=== PATIENT | female | born 1955 | race Caucasian/White ===

== ENCOUNTER → 2017-02-26 | Outpatient (CLI) | payer BC ==
[~2017-02-26] VITALS: Ht 162.6 cm; Wt 61.7 kg
[~2017-02-26] MED LIST: ADVAIR 250/501 DISK IH; ASPIR 8181 M1 PO; ATORVASTATIN CA20 MG PO; COQ-10100 MG PO; PROAIR HFA8.5 GM IH; SINGULAIR10 MG PO
[2017-02-26 10:06] LABS: HEMATOCRIT 44.9 % (36.0-46.0); MCH 28.4 PG (29.0-34.0); MCHC 31.4 G/DL (30.0-36.0); MCV 90.3 FL (83-99); MEAN PLAT.VOLUME 9.5 uM^3 (9.5-12.4); PLATELET COUNT 288 K/uL (156-360); RBC DIS.WIDTH-CV 13.5 % (11.8-14.6); RBC DIS.WIDTH-SD 45.3 % (39-53); RED BLOOD COUNT 4.97 M/uL (3.80-5.20); WHITE BLOOD COUNT 9.6 K/uL (4.1-10.2)
== END | disposition home or self-care (01) ==
LOC: OPR 09:21 → EDSTATUS 10:00 → OPR 10:00
PROVIDERS: Internal Medicine Pulmonary Disease
PROC: 0BBJ3ZX Excision of Left Lower Lung Lobe, Percutaneous Approach, Diagnostic (ICD-10-PCS; principal; 2017-02-26)
DX: C34.92 Malignant neoplasm of unspecified part of left bronchus or lung (principal); J44.9 Chronic obstructive pulmonary disease, unspecified; Z87.891 Personal history of nicotine dependence; E78.5 Hyperlipidemia, unspecified; Z79.82 Long term (current) use of aspirin; G43.909 Migraine, unspecified, not intractable, without status migrainosus; Z90.710 Acquired absence of both cervix and uterus
CPT/HCPCS: 71010; 77012; 85027; 88305; 88341 TC; 88342 TC; J3010

== ENCOUNTER → 2017-03-20 | Outpatient (CLI) | payer BC ==
[~2017-03-20] VITALS: Ht 162.6 cm; Wt 61.7 kg
[~2017-03-20] MED LIST changes: +ZANTAC150 MG PO
== END | disposition home or self-care (01) ==
LOC: AMB 10:05
DX: R59.1 Generalized enlarged lymph nodes (principal); C34.90 Malignant neoplasm of unspecified part of unspecified bronchus or lung; N28.1 Cyst of kidney, acquired; Z87.891 Personal history of nicotine dependence; Z79.82 Long term (current) use of aspirin; J44.9 Chronic obstructive pulmonary disease, unspecified; E78.2 Mixed hyperlipidemia; G43.909 Migraine, unspecified, not intractable, without status migrainosus; Z82.49 Family history of ischemic heart disease and other diseases of the circulatory system; Z80.3 Family history of malignant neoplasm of breast; Z88.5 Allergy status to narcotic agent
CPT/HCPCS: 88305; 88341 TC; 88342 TC; J0330; J0744; J1100; J2405; J3010

== ENCOUNTER → 2017-04-04 | Outpatient (CLI) | payer BC | END | disposition home or self-care (01) | LOC: CDC 10:29 | DX: Z01.810 Encounter for preprocedural cardiovascular examination (principal); C34.90 Malignant neoplasm of unspecified part of unspecified bronchus or lung; R94.31 Abnormal electrocardiogram [ECG] [EKG] | CPT/HCPCS: 93000 ==

== ENCOUNTER 2017-05-01 22:18 | Inpatient (IN) | payer BC ==
[~2017-05-01] VITALS: Ht 162.6 cm; Wt 69.9 kg
[~2017-05-01 22:18] MED LIST changes: +COLACE100 MG PO; +HYDROCODON-ACE1 EAC7 PO; +LORCET 5-325 M1 EACH PO; +NEXIUM20 MG PO
[2017-05-02] VITALS (12 sets, daily range): BP systolic 87–133; BP diastolic 55–75
[2017-05-02 07:33] LABS: PROTHROMBIN TIME 11.4 SEC (10.2-12.9)
[2017-05-02 16:02] LABS: METH RESISTANT S AUREUS PCR NEGATIVE (NEGATIVE)
[2017-05-02 16:03] LABS: PROBE CHECK PASS; SPECIMEN PROCESSING CONTROL PASS
[2017-05-03] VITALS (22 sets, daily range): BP systolic 83–116; BP diastolic 41–78
[2017-05-03 06:55] LABS: HEMATOCRIT 36.8 % (36.0-46.0); MCH 28.2 PG (29.0-34.0); MCHC 31.3 G/DL (30.0-36.0); MCV 90.2 FL (83-99); MEAN PLAT.VOLUME 9.3 uM^3 (9.5-12.4); PLATELET COUNT 284 K/uL (156-360); RED BLOOD COUNT 4.08 M/uL (3.80-5.20); WHITE BLOOD COUNT 14.2 K/uL (4.1-10.2)
[2017-05-03 07:15] LABS: ANION GAP 6 MEQ/L (2-14); CHLORIDE 104 MEQ/L (99-109); GFR ESTIMATE (CALCULATED) > 59 mL/min/; GLUCOSE 118 mg/dL (70-99); POTASSIUM 4.9 MEQ/L (3.7-5.4); SAMPLE HEMOLYSIS CHECK 0; SAMPLE ICTERIC CHECK 0; SAMPLE LIPEMIA CHECK 0; SODIUM 137 MEQ/L (136-147); UREA NITROGEN (BUN) 12 mg/dL (9-23)
[2017-05-04] VITALS (11 sets, daily range): BP systolic 89–118; BP diastolic 52–72
[2017-05-04 05:41] LABS: HEMATOCRIT 36.5 % (36.0-46.0); MCHC 31.2 G/DL (30.0-36.0); MCV 92.9 FL (83-99); MEAN PLAT.VOLUME 9.8 uM^3 (9.5-12.4); PLATELET COUNT 266 K/uL (156-360); RBC DIS.WIDTH-CV 13.2 % (11.8-14.6); RBC DIS.WIDTH-SD 45.5 % (39-53); RED BLOOD COUNT 3.93 M/uL (3.80-5.20)
[2017-05-04 06:00] LABS: ANION GAP 3 MEQ/L (2-14); CHLORIDE 105 MEQ/L (99-109); GFR ESTIMATE (CALCULATED) > 59 mL/min/; GLUCOSE 105 mg/dL (70-99); POTASSIUM 4.5 MEQ/L (3.7-5.4); SAMPLE HEMOLYSIS CHECK 0; SAMPLE ICTERIC CHECK 0; SAMPLE LIPEMIA CHECK 0; SODIUM 138 MEQ/L (136-147); UREA NITROGEN (BUN) 15 mg/dL (9-23)
[2017-05-05] VITALS (8 sets, daily range): BP systolic 88–125; BP diastolic 51–79
[2017-05-06 03:52] VITALS: BP 114/71
[2017-05-06 05:50] LABS: HEMATOCRIT 30.9 % (36.0-46.0); MCH 29.7 PG (29.0-34.0); MCHC 32.7 G/DL (30.0-36.0); MCV 90.9 FL (83-99); MEAN PLAT.VOLUME 9.9 uM^3 (9.5-12.4); PLATELET COUNT 281 K/uL (156-360); RBC DIS.WIDTH-CV 12.9 % (11.8-14.6); RBC DIS.WIDTH-SD 42.7 % (39-53); WHITE BLOOD COUNT 10.5 K/uL (4.1-10.2)
[2017-05-06 06:22] LABS: ANION GAP 7 MEQ/L (2-14); CHLORIDE 107 MEQ/L (99-109); GFR ESTIMATE (CALCULATED) > 59 mL/min/; GLUCOSE 109 mg/dL (70-99); POTASSIUM 4.3 MEQ/L (3.7-5.4); SAMPLE HEMOLYSIS CHECK 0; SAMPLE ICTERIC CHECK 0; SAMPLE LIPEMIA CHECK 0; SODIUM 142 MEQ/L (136-147); UREA NITROGEN (BUN) 15 mg/dL (9-23)
[2017-05-06 09:00] VITALS: BP 133/62
[2017-05-06 12:00] VITALS: BP 117/59
[2017-05-06] MEDS ORDERED: MOTRIN600 MG PO (16:25)
[2017-05-06] MEDS ORDERED: DIGOXIN125 MCG PO (16:25)
[2017-05-06] MEDS ORDERED: MUCINEX600 MG PO (16:25)
[2017-05-06] MEDS ORDERED: LOPRESSOR25 MG PO (16:25)
[2017-05-06] MEDS ORDERED: ENDOCET 5-3251 EACH PO (16:25)
[2017-05-06 16:58] VITALS: BP 103/55
== END 2017-05-06 17:31 | disposition home or self-care (01) | DRG 165 ==
LOC: ENRESERV 22:18 → 2SOUTH 05-02 06:10 → ENRESERV 05-02 09:34 → 2SOUTH 05-02 12:06 → ENRESERV 05-02 12:30 → 2SOUTH 05-02 12:37 → 4WEST 05-02 14:14 → ENRESERV 05-05 20:02 → 4EAST 05-05 21:11
PROVIDERS: Thoracic Surgery (Cardiothoracic Vascular Surgery)
DX: C34.32 Malignant neoplasm of lower lobe, left bronchus or lung (principal); J44.9 Chronic obstructive pulmonary disease, unspecified; I83.90 Asymptomatic varicose veins of unspecified lower extremity; L30.1 Dyshidrosis [pompholyx]; J30.9 Allergic rhinitis, unspecified; G43.909 Migraine, unspecified, not intractable, without status migrainosus; E78.2 Mixed hyperlipidemia; R59.1 Generalized enlarged lymph nodes; M19.90 Unspecified osteoarthritis, unspecified site; Z87.891 Personal history of nicotine dependence; Z87.01 Personal history of pneumonia (recurrent); Z90.49 Acquired absence of other specified parts of digestive tract; Z88.5 Allergy status to narcotic agent; Z91.012 Allergy to eggs; Z91.040 Latex allergy status; Z79.51 Long term (current) use of inhaled steroids; Z82.49 Family history of ischemic heart disease and other diseases of the circulatory system; Z80.8 Family history of malignant neoplasm of other organs or systems
CPT/HCPCS: 71010; 71020; 80048; 85027; 85610; 86850; 86900; 86901; 86920; 87641; 88300; 88305; 88309; 94010; 94640; 94640 76; 94760; 94799; 97530 GO; 99202; J0131; J0690; J1100; J1160; J1170; J1200; J1644; J1885; J2250; J2405; J3010; J7030; J7050; J7120; P9045; Q0175; S0020